=== PATIENT | female | born 1940 | race Caucasian/White ===

== ENCOUNTER 2017-03-25 15:12 | Emergency (ER) | payer MEDICARE, BC, OTHER ==
[2017-03-25 15:35] VITALS: BP 112/66
--- NOTE | 2017-03-25 15:48 | UC ---
Hip/Pelvis Pain - HPI Summary HPI Summary: pain in right hip no know injury - History Of Current Complaint Chief Complaint: UCLowerExtremity Stated Complaint: HIP PAIN Time Seen by Provider: 03/25/17 15:44 Hx Obtained From: Patient Hx Last Menstrual Period: N/A ?: No Mechanism Of Injury: none Onset/Duration: Sudden Onset, Lasting Days, Still Present Timing: Constant Severity Initially: Moderate Severity Currently: Moderate Pain Intensity: 6 Pain Scale Used: 0-10 Numeric Location: Discrete At: - right hip Character Of Pain: Aching, Throbbing, Stiffness Aggravating Factor(s): Movement, Weight Bearing Alleviating Factor(s): Rest Associated Signs And Symptoms: Positive: Negative - Allergies/Home Medications Allergies/Adverse Reactions: Allergies Allergy/AdvReac Type Severity Reaction Status Date / Time Latex Allergy Mild Rash Verified 03/25/17 15:35 Adhesive Tape Allergy Rash Verified 03/25/17 15:36 Alendronate [From Fosamax] AdvReac Intermediate gi reaction Verified 03/25/17 15 :35 Aspirin AdvReac Intermediate gi reaction Verified 03/25/17 15:35 Codeine AdvReac Intermediate gi Verified 03/25/17 15:35 reactioin PMH/Surg Hx/FS Hx/Imm Hx Previously Healthy: No Endocrine History Of: Denies: Diabetes, Thyroid Disease Cardiovascular History Of: Reports: Hypertension Denies: Cardiac Disorders, Pacemaker/ICD, Myocardial Infarction, Congestive Heart Failure, Atrial Fibrillation, Deep Vein Thrombosis, Bleeding Disorders Respiratory History Of: Reports: Asthma Denies: COPD, Bronchitis, Pneumonia, Pulmonary Embolism GI/ History Of: Denies: Gastroesophageal Reflux, Ulcer, Gastrointestinal Bleed, Gall Bladder Disease, Kidney Stones, Diverticulitis, Renal Disease, Urosepsis Neurological History Of: Reports: CVA, Migraine Denies: TIA, Dementia, Seizures Psychological History Of: Denies: Anxiety, Depression, Bipolar Disorder, Schizophrenia, Post Traumatic Stress Disorder Cancer History Of: Denies: Lung Cancer, Colorectal Cancer, Breast Cancer, Prostate Cancer, Cervical Cancer - Surgical History Surgical History: Yes Surgery Procedure, Year, and Place: Hysterectomy - 1975, Gastric Bypass 2004, L. foot surgery - took out part of bone 1984, Bladder reconstruction 2008, DEVIATED SEPTUM 1988. VEIN STRIPPING-2010. HAMMER TOE LEFT FOOT 2012 - Family History Known Family History: Negative: Cardiac Disease, Hypertension, Diabetes - Social History Occupation: Employed Part-time - [employer] Lives: Alone Alcohol Use: Occasionally Alcohol Amount: wine Substance Use Type: None Smoking Status (MU): Never Smoked Tobacco - Immunization History Most Recent Influenza Vaccination: 2013 Most Recent Tetanus Shot: unk Most Recent Pneumonia Vaccination: n/a Review of Systems Constitutional: Negative Skin: Negative Eyes: Negative ENT: Negative Respiratory: Negative Cardiovascular: Negative Gastrointestinal: Negative Genitourinary: Negative Motor: Negative Neurovascular: Negative Musculoskeletal: Arthralgia - right hip Neurological: Negative Psychological: Negative All Other Systems Reviewed And Are Negative: Yes Physical Exam Triage Information Reviewed: Yes Appearance: Well-Appearing, Well-Nourished, Pain Distress - mild Vital Signs: Initial Vital Signs Temp 97.8 F 03/25/17 15:31 Pulse 80 03/25/17 15:31 Resp 16 03/25/17 15:31 BP 112/66 03/25/17 15:31 Pulse Ox 97 03/25/17 15:31 Vital Signs Reviewed: Yes Eye Exam: Normal Eyes: Positive: Conjunctiva Clear ENT Exam: Normal ENT: Positive: Normal ENT inspection, Hearing grossly normal. Negative: Nasal congestion, Nasal drainage, Trismus, Muffled/hoarse voice Dental Exam: Normal Neck exam: Normal Neck: Positive: Supple, Nontender Respiratory Exam: Normal Respiratory: Positive: Chest non-tender, Lungs clear, Normal breath sounds, No respiratory distress, No accessory muscle use Cardiovascular Exam: Normal Cardiovascular: Positive: RRR, No Murmur, Pulses Normal, Brisk Capillary Refill Abdominal Exam: Normal Abdomen Description: Positive: Nontender, No Organomegaly, Soft Musculoskeletal Exam: Normal Musculoskeletal: Positive: Strength Intact, No Edema, ROM Limited @ - right hip pain Neurological Exam: Normal Neurological: Positive: Alert, Muscle Tone Normal Psychological Exam: Normal Skin Exam: Normal Diagnostics - Radiology No standard instances Xray Interpretation: Positive (See Comments) - degenerative changes and osteophyte formation Radiology Interpretation Completed By: Radiologist Hip Injury Course/Dx - Course Course Of Treatment: ultram, tylenol, walker, follow with ortho - Differential Dx/Diagnosis Differential Diagnosis/HQI/PQRI: Bursitis, Contusion, Fracture, Sprain, Strain Provider Diagnoses: Degeneration hip, arthritis Discharge - Discharge Plan Condition: Stable Disposition: HOME Prescriptions: traMADol TAB* [Ultram*] 25 - 50 mg PO Q6HR PRN #15 tab MDD 4 PRN Reason: pain Patient Education Materials: Osteoarthritis (ED), Hip Pain (ED) Referrals: Marci Liang MD [Primary Care Provider] - Eufemia Hernandez MD [Medical Doctor] - 4 Days
--- NOTE | 2017-03-25 17:15 | RAD ---
INDICATION: Lateral right hip pain. COMPARISON: None TECHNIQUE: 3 views of the right hip were obtained. FINDINGS: Degenerative changes of the bilateral hips seen on the AP pelvis include mild joint space narrowing and sclerotic change of the acetabular roof. Additional views of the right hip demonstrate mild osteophyte formation along the superior edge of the acetabulum. There is no fracture or dislocation visible. Surgical clips are incidentally noted overlying the bilateral upper anterior hips. IMPRESSION: Degenerative changes of the bilateral hips. If the patient's symptoms persist follow-up imaging is recommended.
== END 2017-03-25 17:31 | disposition home or self-care (01) ==
LOC: UCEAST 15:12
DX: M16.11 Unilateral primary osteoarthritis, right hip (principal)
CPT/HCPCS: 99212; G0463

== ENCOUNTER 2017-03-28 12:26 | Observation (INO) | payer MEDICARE, BC, OTHER ==
[2017-03-28] MEDS ORDERED: Ondansetron INJ* 2 MG/ML VIAL IV ONE (14:12)
[2017-03-28] MEDS ORDERED: fentaNYL* 50 MCG/ML 2 ML VIAL (100 MCG VIAL) IV SLOW PU ONE ×2 (14:12→15:57)
[2017-03-28] MEDS ORDERED: NS 0.9% 1000 ML* 1,000 ML IV ONE (14:12)
--- NOTE | 2017-03-28 14:50 | RAD ---
HISTORY: Hip pain, unable to externally rotate or flex right hip, pain rating down hip and right lower extremity COMPARISONS: None TECHNIQUE: Multiple contiguous axial CT scans were obtained of the lumbar spine and pelvis without intravenous contrast, with coronal and sagittal multiplanar reformations. FINDINGS: There is a transitional last lumbar type vertebral body which will be labeled S1 for the purposes of counting. SPINAL CANAL: Evaluation of the central canal is limited on CT technique; however, there is no obvious canalicular mass or epidural hemorrhage. ALIGNMENT: The alignment is normal. VERTEBRAL BODIES: There is diffuse osteopenia. There is partial lumbarization of the S1 vertebral body. There is no displaced fracture or dislocation. There is deformity of the sacrococcygeal junction suggestive of remote fracture. JOINTS: There is diffuse extensive facet osteoarthritic change. There is mild osteoarthritis of the hips bilaterally MUSCULATURE: Unremarkable INTERVERTEBRAL DISCS: There is diffuse loss of intervertebral disc height throughout the spine. AXIAL IMAGES: T11-T12: There is no osseous neural foraminal narrowing or central canal stenosis. T12-L1: There is no osseous neural foraminal narrowing or central canal stenosis. L1-L2: There is no osseous neural foraminal narrowing or central canal stenosis. L2-L3: There is a right paracentral disc protrusion measuring 0.5 cm in depth. There is no significant neural foraminal narrowing or central canal stenosis. L3-L4: There is mild disc bulge. There is no significant neural foraminal narrowing or central stenosis. L4-L5: There is a broad-based disc bulge. There is bilateral facet hypertrophy. There is mild bilateral neural foraminal area. There is moderate narrowing of the central canal. L5-S1: There is bilateral facet hypertrophy. There is marginal osteophyte formation at the neural foramina bilaterally. There is mild disc bulge. There is mild narrowing of central canal. There is moderate bilateral neural foraminal narrowing. SOFT TISSUES: There is extensive diverticulosis of the colon OTHER: There is mild osteoarthritis of the SI joints IMPRESSION: 1. OSTEOPENIA. 2. 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 3. THERE IS A RIGHT-SIDED DISC PROTRUSION AT L2-L3. 4. THERE IS MODERATE NARROWING OF THE CENTRAL CANAL AT L4-L5. THERE IS MILD NARROWING OF CENTRAL CANAL AT L5-S1. 5. THERE IS MULTILEVEL NEURAL FORAMINAL NARROWING DESCRIBED ABOVE. 6. THERE IS OSTEOARTHRITIS OF THE HIPS AND SI JOINTS
--- NOTE | 2017-03-28 15:05 | RAD ---
HISTORY: Right lower extremity pain COMPARISONS: None relevant TECHNIQUE: Multiple transverse and longitudinal ultrasound images were obtained of the right lower extremity from the level of the common femoral vein inferiorly through to the infrapopliteal veins using grayscale, color Doppler, and spectral Doppler imaging with and without compression and with augmentation. Comparison images were obtained of the contralateral common femoral vein. FINDINGS: VEINS: The venous system of the right lower extremity is compressible throughout its course, with normal flow on color Doppler imaging and normal response to augmentation on spectral Doppler imaging. SOFT TISSUES: Unremarkable. OTHER FINDINGS: None. IMPRESSION: NO RIGHT LOWER EXTREMITY DEEP VEIN THROMBOSIS
[2017-03-28 15:20] LABS: Hematocrit 39 % (35-47); Mean Corpuscular HGB Conc 34 g/dl (31-36); Mean Corpuscular Hemoglobin 32 pg (27-31); Mean Corpuscular Volume 95 fL (80-97); Mean Platelet Volume 9 um3 (7.4-10.4); Red Blood Count 4.04 10^6/ul (4.0-5.4); Red Cell Distribution Width 13 % (10.5-15); White Blood Count 7.7 10^3/ul (3.5-10.8)
[2017-03-28 15:36] LABS: Albumin 3.9 g/dL (3.2-5.2); BUN/Creatinine Ratio 20.6 (8-20); C Reactive Protein 76.5 mg/L (< 5.00); Calcium 9.5 mg/dL (8.6-10.3); EGFR African American 117.8 (>60); EGFR Non-African American 91.6 (>60); Globulin 3.2 g/dL (2-4); Potassium 3.5 mmol/L (3.5-5.0); Total Bilirubin 0.6 mg/dL (0.2-1.0); Total Protein 7.1 g/dL (6.4-8.9)
[2017-03-28 16:22] LABS: Erythrocyte Sed Rate 51 mm/Hr (0-40)
--- NOTE | 2017-03-28 17:13 | ED ---
Akosua Dickinson Rebecca, scribed for Margaret Hidalgo MD on 03/28/17 at 1357 . Back Pain - HPI Summary HPI Summary: Pt is a 77 y/o F who presents to ED c/o lumbar back pain. Pain began suddenly 3 days ago and has been constant since onset. Pain is in the R lumbar back with radiation to the R buttock and the entire RLE, including the R foot. Pain is currently severe, ranked 9/10 and characterized as aching. Sx aggravated by walking, alleviated by nothing, unchanged by Tylenol. She has never taken Percocet or Morphine before. Additionally c/o R calf pain. Denies fever. Denies any recent falls. Pt cannot walk well, with her daughter stating she is shuffling. Daughter states she recently got bit by her puppy on the RLE. She is not on blood thinners. Pt was evaluated by [facility] on Thursday where an XR was performed and she was administered Tramadol which led to hyperemesis. PSHx gastric bypass (2004). PCP is Dr. Liang and orthopedist is Dr. Diallo, who has an MRI scheduled for current sx. - History of Current Complaint Chief Complaint: EDHipPelvisInjury Stated Complaint: LOWER BACK AND RIGHT FOOT INJURY Time Seen by Provider: 03/28/17 13:22 Hx Obtained From: Patient Hx Last Menstrual Period: N/A Onset/Duration: Sudden Onset, Still Present Onset/Duration: Started Days Ago - 3 days ago, Still Present Timing: Constant Back Pain Location: Is Discrete @ - R lumbar back, Radiates To - R buttock and RLE Severity Initially: Severe Severity Currently: Severe Pain Intensity: 9 Pain Scale Used: 0-10 Numeric Character: Aching Aggravating Symptom(s): Walking Alleviating Symptom(s): Nothing Associated Signs And Symptoms: Positive: Negative. Negative: Fever - Allergies/Home Medications Allergies/Adverse Reactions: Allergies Allergy/AdvReac Type Severity Reaction Status Date / Time Latex Allergy Mild Rash Verified 03/28/17 12:33 Adhesive Tape Allergy Rash Verified 03/28/17 12:33 Alendronate [From Fosamax] AdvReac Intermediate gi reaction Verified 03/28/17 12 :33 Aspirin AdvReac Intermediate gi reaction Verified 03/28/17 12:33 Codeine AdvReac Intermediate gi Verified 03/28/17 12:33 reactioin PMH/Surg Hx/FS Hx/Imm Hx Endocrine/Hematology History: Denies: Hx Diabetes, Hx Sickle Cell Disease, Hx Thyroid Disease Cardiovascular History: Reports: Hx Hypertension Denies: Hx Congestive Heart Failure, Hx Deep Vein Thrombosis, Hx Myocardial Infarction, Hx Pacemaker/ICD, Other Cardiovascular Problems/Disorders Respiratory History: Reports: Hx Asthma Denies: Hx Chronic Obstructive Pulmonary Disease (COPD), Hx Lung Cancer, Hx Pneumonia, Hx Pulmonary Embolism, Other Respiratory Problems/Disorders GI History: Denies: Hx Gall Bladder Disease, Hx Gastrointestinal Bleed, Hx Ulcer, Hx Urosepsis History: Reports: Other Problems/Disorders - mesh for prolapsed bladder Denies: Hx Kidney Stones, Hx Renal Disease Musculoskeletal History: Reports: Hx Arthritis - HANDS, KNEES, Hx Osteoporosis Sensory History: Reports: Hx Contacts or Glasses - INSTRUCTS GIVEN Denies: Hx Hearing Aid Opthamlomology History: Reports: Hx Contacts or Glasses - INSTRUCTS GIVEN Neurological History: Reports: Hx Headaches - HISTORY OF- NO RECENTLY, Hx Migraine, Other Neuro Impairments/Disorders - 08/2014CEREBRAL AMYLOID ANGIOPATHY Denies: Hx Dementia, Hx Seizures, Hx Transient Ischemic Attacks (TIA) Psychiatric History: Denies: Hx Anxiety, Hx Depression, Hx Panic Disorder, Hx Schizophrenia, Hx Bipolar Disorder - Cancer History Cancer Type, 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 foot surgery - took out part of bone 1984, Bladder reconstruction 2008, DEVIATED SEPTUM 1988. VEIN STRIPPING-2010. HAMMER TOE LEFT FOOT 2012 Hx Anesthesia Reactions: Yes - SENSITIVE- STATES TENDENCY TO WANT TO SLEEP FOR A LONG PERIOD OF TIME Infectious Disease History: Yes Infectious Disease History: Reports: Hx Shingles - Denies: Hx Clostridium Difficile, Hx Hepatitis, Hx Human Immunodeficiency Virus (HIV), Hx of Known/Suspected MRSA, Hx Tuberculosis, Hx Known/Suspected VRE , Hx Known/Suspected VRSA, History Other Infectious Disease, Traveled Outside the [place] in Last 30 Days - Family History Known Family History: Negative: Cardiac Disease, Hypertension, Diabetes - Social History Alcohol Use: Occasionally Alcohol Amount: wine Substance Use Type: Reports: None Smoking Status (MU): Never Smoked Tobacco Review of Systems Negative: Fever Positive: Arthralgia - R lumbar back pain with radiation to the R buttock and entire RLE, Other - R calf pain All Other Systems Reviewed And Are Negative: Yes Physical Exam - Summary Physical Exam Summary: General: Well appearing, no pain distress Skin: Warm, Skin Color Reflects Adequate Perfusion, Dry Eyes: EOMI, JET ENT: Pharynx normal, TMs normal Neck: Supple, nontender Respiratory: CTA, breath sounds present, no rhonchi, no wheezes, no rales Cardiovascular: RRR, no murmur, no rub, no gallop Abdomen: Soft, nontender, Non-distended, no guarding, no rebound Bowel: Present Musculoskeletal: RONNIE, No edema. Tender in the entire RLE. tender over the R calf, thigh and the anterior surface of the upper RLE. Neuro: Sensory/motor intact, A&Ox3, CN intact 2-12 Psych: Affect/mood appropriate Triage Information Reviewed: Yes Vital Signs On Initial Exam: Initial Vitals Temp Pulse Resp BP Pulse Ox 97.6 F 80 18 111/68 98 03/28/17 12:29 03/28/17 12:29 03/28/17 12:29 03/28/17 12:29 03/28/17 12:29 Vital Signs Reviewed: Yes Diagnostics - Vital Signs Vital Signs Temp Pulse Resp BP Pulse Ox 03/28/17 12:29 97.6 F 80 18 111/68 98 - Laboratory Lab Results: Lab Results 03/28/17 03/28/17 Range/Units 15:11 15:11 WBC 7.7 (3.5-10.8) 10^3/ul RBC 4.04 (4.0-5.4) 10^6/ul Hgb 13.0 (12.0-16.0) g/dl Hct 39 (35-47) % MCV 95 (80-97) fL MCH 32 H (27-31) pg MCHC 34 (31-36) g/dl RDW 13 (10.5-15) % Plt Count 181 (150-450) 10^3/ul MPV 9 (7.4-10.4) um3 Neut % (Auto) 71.8 (38-83) % Lymph % (Auto) 18.2 L (25-47) % [place] % (Auto) 9.2 H (1-9) % Eos % (Auto) 0.5 (0-6) % Baso % (Auto) 0.3 (0-2) % Absolute Neuts (auto) 5.5 (1.5-7.7) 10^3/ul Absolute Lymphs (auto) 1.4 (1.0-4.8) 10^3/ul Absolute Monos (auto) 0.7 (0-0.8) 10^3/ul Absolute Eos (auto) 0 (0-0.6) 10^3/ul Absolute Basos (auto) 0 (0-0.2) 10^3/ul Absolute Nucleated RBC 0 10^3/ul Nucleated RBC % 0.1 ESR 51 H (0-40) mm/Hr Sodium 136 (133-145) mmol/L Potassium 3.5 (3.5-5.0) mmol/L Chloride 98 L (101-111) mmol/L Carbon Dioxide 28 (22-32) mmol/L Anion Gap 10 (2-11) mmol/L BUN 13 (6-24) mg/dL Creatinine 0.63 (0.51-0.95) mg/dL Est GFR ( Amer) 117.8 (>60) Est GFR (Non-Af Amer) 91.6 (>60) BUN/Creatinine Ratio 20.6 H (8-20) Glucose 104 H (70-100) mg/dL Calcium 9.5 (8.6-10.3) mg/dL Total Bilirubin 0.60 (0.2-1.0) mg/dL AST 17 (13-39) U/L ALT 11 (7-52) U/L Alkaline Phosphatase 65 (34-104) U/L C-Reactive Protein 76.50 H (< 5.00) mg/L Total Protein 7.1 (6.4-8.9) g/dL Albumin 3.9 (3.2-5.2) g/dL Globulin 3.2 (2-4) g/dL Albumin/Globulin Ratio 1.2 (1-3) Result Diagrams: 03/28/17 15:11 03/28/17 15:11 Lab Statement: Any lab studies that have been ordered have been reviewed, and results considered in the medical decision making process. - CT L-Spine CT CT Interpretation Completed By: Radiologist - 1. OSTEOPENIA. 2. 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 3. THERE IS A RIGHT-SIDED DISC PROTRUSION AT L2-L3. 4. THERE IS MODERATE NARROWING OF THE CENTRAL CANAL AT L4-L5. THERE IS MILD NARROWING OF CENTRAL CANAL AT L5-S1. 5. THERE IS MULTILEVEL NEURAL FORAMINAL NARROWING DESCRIBED ABOVE. 6. THERE IS OSTEOARTHRITIS OF THE HIPS AND SI JOINTS Pelvis CT CT Interpretation Completed By: Radiologist - 1. OSTEOPENIA. 2. 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 3. THERE IS A RIGHT-SIDED DISC PROTRUSION AT L2-L3. 4. THERE IS MODERATE NARROWING OF THE CENTRAL CANAL AT L4-L5. THERE IS MILD NARROWING OF CENTRAL CANAL AT L5-S1. 5. THERE IS MULTILEVEL NEURAL FORAMINAL NARROWING DESCRIBED ABOVE. 6. THERE IS OSTEOARTHRITIS OF THE HIPS AND SI JOINTS - Ultrasound No standard instances Ultrasound Interpretation Completed By: Radiologist - Venous Doppler Study: NO RIGHT LOWER EXTREMITY DEEP VEIN THROMBOSIS Re-Evaluation - Re-Evaluation First Eval Re-Evaluation Time: 15:51 Change: Improved Comment: Explained that labs look good. From CT, it appears as though there are two issues - spinal disease and arthritis. Pt requested another dose of pain medication. Back Pain Course/Dx - Course Course Of Treatment: Patient medications reviewed this visit. 77 yo female with pain down right leg and back pain, since wed she has seen an orthopedist through [facility] and the plan was to get an mri as there is suspicion for sciatica. On exam she has si joint tenderness and pain with hip flexion and hip abduction. Her CT's show osteopenia, si joint arthritis and central canal stenosis after 2 doses of narcotics pt attempted to ambulate with a walker and was determinted to be unsafe. Dr. Hayward was made aware that pt is unsafe to go home and that her pain is intractable and he accepted the pt for admission - Diagnoses Provider Diagnoses: Hip pain, Sciatica - Provider Notifications Discussed Care of Patient With: Dr. Hayward, hospitalist, who accepts pt for admission. Time Discussed With Above Provider: 17:02 Discharge - Discharge Plan Condition: Good Disposition: ADMITTED TO [facility] Referrals: Marci Liang MD [Primary Care Provider] - The documentation as recorded by the Akosua oliveir Rebecca accurately reflects the service I personally performed and the decisions made by me, Margaret Hidalgo MD.
[2017-03-28] MEDS ORDERED: Metoprolol Tartrate IV* 1 MG/ML 5 ML VIAL IV PRN (17:54)
[2017-03-28] MEDS ORDERED: Enoxaparin(*) 40 MG/0.4 ML SYR SUBCUT SCH (18:00)
[2017-03-28] MEDS ORDERED: HYDROcodone/ACETAMIN 5-325 MG* 1 TAB PO PRN (18:01)
[2017-03-28] MEDS ORDERED: fentaNYL* 50 MCG/ML 2 ML VIAL (100 MCG VIAL) IV SLOW PU PRN (18:01)
[2017-03-28] MEDS ORDERED: Cyclobenzaprine TAB* 10 MG PO PRN (18:04)
[2017-03-28] MEDS ORDERED: Albuterol HFA INHALER* 8 gm MDI INH PRN (18:14)
[2017-03-28] MEDS ORDERED: PROCHLORPERAZINE INJ 5 MG/ML 2 ML VIAL IV PRN (18:16)
[2017-03-28] MEDS ORDERED: Ondansetron INJ* 2 MG/ML VIAL IV PRN (18:16)
[2017-03-28] MEDS ORDERED: Acetaminophen TAB* 325 MG PO PRN (18:16)
[2017-03-28] MEDS: predniSONE TAB* 20 MG PO SCH (18:55)
[2017-03-28] MEDS: NS 0.9% 1000 ML* 1,000 ML IV SCH (18:58)
[2017-03-28] MEDS: Ketorolac INJ* 30 MG/ML 1 ML VIAL IV PUSH PRN (19:00)
[2017-03-28] MEDS ORDERED: Lidocaine PATCH 5%* 1 PATCH TRANSDERM SCH (19:00)
--- NOTE | 2017-03-28 19:04 | HP ---
HISTORY AND PHYSICAL: ADDENDUM: Ms. 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 The pain is so severe on the right side that she is now unable to walk. She had osman montes an orthopedic surgery nurse practitioner a couple of days ago who ordered an MRI that is not darlene nned to be done until 03/31/17. The patient came to the hospital for intractable pain. She is emily g to be placed on overnight observation. We will place her on oral steroids as well as narcotic tez n medications. Physical therapy will evaluate the patient in the morning. Incidentally, the patient also was noted to be in atrial fibrillation. Due to her history of intrac ranial hemorrhage and amyloid angiopathy, anticoagulation is contraindicated. Nevertheless, she is going to be placed on telemetry monitored bed. For further details of the patient's presentation and plan, please see history and physical dictated by Janice Marin NP, on 03/28/17 with which I agree. [id number]/[facility] #: [id number]
--- NOTE | 2017-03-28 20:02 | HP ---
MEDICINE HISTORY AND PHYSICAL: DATE OF ADMISSION: 03/28/17 ATTENDING PHYSICIAN: Astrid Kay MD* (dictated by Byron Poole NP). PRIMARY CARE PROVIDER: Dr. Liang. CHIEF COMPLAINT: Low back pain. HISTORY OF PRESENT ILLNESS: Ms. Soria is a 77-year-old female who presents today with concern for low back pain. This pain has been present for an extended period of time, but has recently worsened. The patient states that suddenly it became worse 3 days ago. It has been constant ever since. She reports the pain starting in the right lumbar spinal region with radiation to the right buttock, right hip, and entire right lower extremity. The pain is most painful in the right foot. The right hip and thigh is tender to touch. She describes the pain as severe, aching, radiating, constant. She has recently started shuffling and now is reporting that she is unable to put weight on it without significant pain. Her pain is aggravated by walking and is relieved by nothing except the fentanyl that she received here in the ER. She was taking Tylenol at home with no effect. She states that she was prescribed tramadol earlier this week, but that caused significant vomiting. The patient reports that she has had difficulty absorbing medications due to a Jay-en- Y surgery many years ago. Her daughter reports that in the past she has tried oxycodone with no effect. The patient states that she was seen by an orthopedic provider at [facility], Annabella Diallo, who felt that it was sciatica. He ordered an MRI for next week, but she has been unable to function at home and has come into the ER for further evaluation and treatment. The patient denies any recent illness, fevers, or chills. She denies any chest pain, palpitations, syncope, or shortness of breath. She denies any cold or flu symptoms or abdominal pain, nausea, vomiting, or diarrhea. She denies any dysuria or hematuria. She denies any focal weakness. She reports tingling and numbness in the right lower extremity. She denies any new changes to her vision or hearing, but does think that she recently had a left ear tube placed due to recurrent fluid and clogging. She was seen by Dr. Roger. A few weeks ago, she reported having a headache on the left side of her head almost every day, but this has now gone. She denies any other concerns or complaints other than the right lower back pain and right lower extremity pain that she currently endorses. During my examination, the patient was noted to have an irregular rhythm that was concerning for AFib. steel handler confirmed the patient was in atrial fibrillation with rates in the 110s to 130s. PAST MEDICAL HISTORY: 1. Osteoporosis. 2. Allergic rhinitis. 3. Hypertension. 4. Asthma. 5. Osteoarthritis. 6. History of migraines. 7. Suspect previously diagnosed atrial fibrillation as the patient does report that one of her doctors tried to start her on Xarelto, but she could not do this due to her history of cerebral amyloid angiopathy. 8. 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 9. History of uterine cancer, status post hysterectomy. 10. History of varicose veins. PAST SURGICAL HISTORY: 1. Jay-en-Y surgery in 2003. 2. History of deviated septum, status post repair. 3. Left foot bunionectomy. 4. Varicose vein and vein stripping. 5. Hernia repair and belt lipectomy. 6. Followup of belt lipectomy x3. 7. Cystocele repair. 8. Lump removal of the left cheek. 9. Foot surgery for hammertoe and bunion. 10. Interlaminar epidural steroid block, series of 3 in 2003. 11. Basal cell carcinoma, status post lesion removal in 2007. 12. Fracture of left wrist in 2012. 13. History of fractured sternum in 2013. HOME MEDICATIONS: The patient provided me with a list that seems inconsistent with the pharmacy list. Nursing asked to help with updating the patient's medication list by contacting the pharmacy and PCP when offices are opened. The tentative list is as follows: 1. Multivitamin 1 tab daily. 2. Calcium 630 mg plus vitamin D 1 tab daily. 3. Glucosamine 2000 mg b.i.d. 4. Iron supplement daily. 5. Bisoprolol/hydrochlorothiazide 5/6.25 one tab daily. 6. Acetaminophen 325 mg q.4 hours p.r.n. 7. Tramadol 25 to 50 mg q.6 hours p.r.n. The patient states that this causes hyperemesis. 8. Torsemide 10 mg daily. 9. Symbicort 2 puffs b.i.d. 10. ProAir as needed. 11. Refresh Tears eye drops daily. 12. Lisinopril 10 mg daily. 13. AREDS PreserVision vitamin daily. 14. Spironolactone 25 mg daily. 15. Ginseng supplement daily. 16. Loratadine 10 mg daily. 17. Fluticasone nasal spray 2 sprays to both nares daily. Again, this is a tentative list that needs to be updated as the patient is a poor historian. ALLERGIES: Include LATEX, ADHESIVE TAPE, ALENDRONATE, ASPIRIN, and CODEINE. Please note that ASPIRIN, CODEINE, FOSAMAX include GI reactions and TAPE and LATEX include rash reactions. FAMILY HISTORY: Per previous records, the patient's mother at the age of 80. The patient's father at the age of 75. She is unaware of the medical history. She reports a sister who had stomach cancer and another who from Alzheimer's. SOCIAL HISTORY: She denies any previous or current smoking. She drinks alcohol occasionally. She denies any illicit drug use. 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 She formerly worked at [employer]. She is . She lives at home by herself. She has 5 living children. Her daughters, Ly and Julieta, are her surrogate decision makers in the event of emergency. REVIEW OF SYSTEMS: A 14-point review of systems was completed. All pertinent positives and negatives are included in the HPI. Others not mentioned were negative. PHYSICAL EXAMINATION GENERAL: Ms. Soria is a well-developed, well-nourished elderly female who is lying in the bed in no acute distress. VITAL SIGNS: Temperature 98.5, heart rate 110, respiratory rate 22, blood pressure 157/94, and O2 saturation 97% on room air. HEENT: Head is atraumatic, normocephalic. Face is symmetrical. Pupils are equal, round, and reactive to light. Extraocular movements are intact. External ears and nose are normal. Oral mucosa appears moist. There is no oropharyngeal erythema. NECK: Supple. No lymphadenopathy appreciated. RESPIRATORY: Lungs are clear to auscultation anteriorly. The patient had pain with leaning forward, so I was unable to listen posteriorly. CARDIAC: Irregular rate and rhythm. No murmurs appreciated. The patient has trace lower extremity edema. Distal pulses are 2+ at the dorsalis pedis site. ABDOMEN: Soft, nontender, nondistended. Bowel sounds are present. MUSCULOSKELETAL: There is no cyanosis or clubbing present. The patient has active range of motion to all extremities, but does have guarding to the right lower extremity secondary to pain. She is able to dorsiflex and extend the right foot. SKIN: Warm and dry, appears grossly intact. The patient does have evidence of varicose veins to the lower extremities. NEUROLOGIC: Cranial nerves II through XII appeared to be grossly intact. Sensation is intact to sharp and dull as well as light touch to both lower extremities. PSYCH: She is alert and oriented x3. LABORATORY DATA AND DIAGNOSTIC STUDIES: CBC: WBC 7.7, hemoglobin 13.0, hematocrit 39, platelet count 181. Her ESR is 51. CMP: Sodium 136, potassium 3.5, chloride 98, carbon dioxide 28, BUN 13, creatinine 0.63, glucose 104, calcium 9.5. Total bilirubin 0.6, AST 17, ALT 11, alk phos 65. CRP 76.5. Venous Doppler study of the right lower extremity shows no right lower extremity deep vein thrombosis. CT of the lumbar spine shows: 1. Osteopenia. 2. Degenerative disk disease and osteoarthritis of the lumbar spine. 3. There is a right-sided disk protrusion at L2-L3. 4. There is moderate narrowing of the central canal at L4-L5. There is mild narrowing of the central canal at L5-S1. There is multilevel neuroforaminal narrowing as described above. There is osteoarthritis of the hips and SI joints. CT of the pelvis: Findings are consistent with the findings of the CT of the lumbar spine. Old medical records were reviewed. ASSESSMENT AND PLAN: Ms. Soria is a 77-year-old female who presents today with concern for intractable back pain and right lower extremity pain that prevents her from safely staying at home and ambulating as well as atrial fibrillation. We will admit her to the telemetry floor. Plan is as follows: 1. Intractable back pain: The patient has not been tried on many pain modalities recently, but appears to have sensitivity to many pain medications. We will try her on some prednisone to see if that may help with the inflammation. Additionally, we will continue the fentanyl and try hydrocodone which apparently she has not had. We will include antiemetics as this does cause discomfort for the patient. We will also try a Lidoderm patch and make available Flexeril for muscle spasms and continue to follow. The patient is ordered PT and OT. Ultimately, I think she will probably need an MRI and perhaps a neurosurgery consult, but we will begin with medical management at this time. She does have an elevated ESR and CRP, although the etiology of this is unclear as the patient has no other acute complaints other than this pain. I will check a UA as well as some blood cultures to make sure that we are not missing any acute infections and we will recheck the CRP tomorrow. We will attempt to obtain records from the patient's primary care doctor and orthopedic doctor in order to better understand what has been occurring in the outpatient setting. 2. Atrial fibrillation: I do not think this is new as the patient does describe that someone had once told her recently that she has an irregular heart beat and states that they also informed her that she has some swelling around her heart. She states that she was offered Xarelto, but her neurologist told her that she could not have this due to her history of cerebral amyloid angiopathy. I will obtain an echocardiogram here because I do feel that she may have some heart failure or cardiomyopathy; however, she is unaware of this history and her daughters do not seem to be aware of this either. Again, we will try to obtain records from her primary when available. It appears the patient has asymptomatic atrial fibrillation as she does not endorse any chest pain or shortness of breath in the outpatient setting. I think she is most likely rate controlled, but after my examination, I did note that her heart rate did stay sustained in the 120s for quite sometime before relaxing down into the 100s. We will, therefore, monitor on telemetry and I have p.r.n. metoprolol available in the event that she does have a sustained heart rate in the 120s or greater. The patient does have significant pain with movement, so this may actually be a recurrent issue, but we will continue to monitor closely on telemetry to see how the patient fares. I do also suspect from investigation into the patient's history that she does see a sex worker or escort , although she does not recall this when asked. 3. Hypertension: Continue home lisinopril, bisoprolol/hydrochlorothiazide, torsemide, and spironolactone. 4. History of asthma: Continue Symbicort and p.r.n. albuterol. 5. History of allergic rhinitis: Continue loratadine and fluticasone nasal spray. 6. History of Jay-en-Y gastric bypass: Continue home vitamin supplements. 7. DVT prophylaxis: The patient is ordered subcu Lovenox. 8. FEN: She is ordered a heart healthy diet. 9. Code status: The patient is a full code. TIME SPENT: Approximately 70 minutes were spent in admission of this patient which includes more than half the time spent [id number] with the patient and her family obtaining history and physical, performing physical examination, and reviewing the plan of care. The plan of care was also reviewed with my attending, Dr. Kay, who is in agreement. BYRON POOLE NP ADDENDUM TO HISTORY AND PHYSICAL: Ms. Soria is a 77-year-old female with a history of cerebral amyloid angiopathy with intracranial hemorrhage in the past who presented to the hospital complaining of worsening of her right-sided sciatica. The pain is so severe on the right side that she is now unable to walk. She had seen an orthopedic surgery nurse practitioner a couple of days ago who ordered an MRI that is not planned to be done until 03/31/17. The patient came to the hospital for intractable pain. She is going to be placed on overnight observation. We will place her on oral steroids as well as narcotic pain medications. Physical therapy will evaluate the patient in the morning. Incidentally, the patient also was noted to be in atrial fibrillation. Due to her history of intracranial hemorrhage and amyloid angiopathy, anticoagulation is contraindicated. Nevertheless, she is going to be placed on telemetry monitored bed. For further details of the patient's presentation and plan, please see history and physical dictated by Byron Poole NP, on 03/28/17 with which I agree. ASTRID KAY MD CC: Dr. Liang* [id number]/[facility] #: [id number]/CPS #: [id number] ANNMARIE
[2017-03-28] MEDS ORDERED: Lidocaine Patch REMOVE* 1 NOTE MISC SCH (21:00)
[2017-03-28] MEDS: Mometasone/Formoter 200/5 MDI INH SCH (21:05)
[2017-03-29] MEDS: Cholecalciferol TAB* 1000 UNITS PO SCH ×2 (00:13→07:58)
[2017-03-29] MEDS: HYDROcodone/ACETAMIN 5-325 MG* 1 TAB PO PRN ×2 (00:16→04:46)
[2017-03-29 04:45] LABS: Hematocrit 34 % (35-47); Hemoglobin 11.7 g/dl (12.0-16.0); Mean Corpuscular HGB Conc 34 g/dl (31-36); Mean Corpuscular Hemoglobin 33 pg (27-31); Mean Corpuscular Volume 95 fL (80-97); Mean Platelet Volume 9 um3 (7.4-10.4); Red Cell Distribution Width 13 % (10.5-15); White Blood Count 5.8 10^3/ul (3.5-10.8)
[2017-03-29] MEDS: Ketorolac INJ* 30 MG/ML 1 ML VIAL IV PUSH PRN (04:45)
[2017-03-29 05:08] LABS: BUN/Creatinine Ratio 26.2 (8-20); C Reactive Protein 69.31 mg/L (< 5.00); Calcium 8.3 mg/dL (8.6-10.3); EGFR African American 122.3 (>60); EGFR Non-African American 95.1 (>60)
[2017-03-29] MEDS: NS 0.9% 1000 ML* 1,000 ML IV SCH (05:59)
[2017-03-29 07:54] VITALS: BP 104/68
[2017-03-29] MEDS: predniSONE TAB* 20 MG PO SCH (07:58)
[2017-03-29] MEDS ORDERED: HYDROCHLOROTHIAZI PO SCH (09:00)
[2017-03-29] MEDS ORDERED: Preservision Areds(NF) CAP PO SCH (09:00)
[2017-03-29] MEDS ORDERED: Torsemide TAB* 20 MG PO SCH (09:00)
[2017-03-29] MEDS ORDERED: Calcium Citrate TAB* 200 MG PO SCH (09:00)
[2017-03-29] MEDS ORDERED: Fluticasone NASAL SPRAY 50MCG* 16 gm SPRAY BTL BOTH NARES SCH (09:00)
[2017-03-29] MEDS ORDERED: Cetirizine* 10 MG TAB PO SCH (09:00)
[2017-03-29] MEDS ORDERED: Spironolactone TAB* 25 MG PO SCH (09:00)
[2017-03-29] MEDS ORDERED: BISOPROLOL PO SCH (09:00)
[2017-03-29] MEDS ORDERED: Lisinopril TAB* 10 MG PO SCH (09:00)
[2017-03-29] MEDS ORDERED: Ferrous Sulfate TAB* 325 MG PO SCH (09:00)
[2017-03-29] MEDS: Mometasone/Formoter 200/5 MDI INH SCH (09:30)
--- NOTE | 2017-03-29 10:40 | ECHO ---
Patient: [facility] Rec#: [id number] : 1940 Date: 03/29/2017 Age: 77y Height: 162.56 cm / 64.0 in Weight: 75.3 kg / 166.0 lbs Sex: F BSA: 1.81 Room#: 432 Admit Date#: 03/28/2017 Type: Inpatient Referring: Janice Marin Reading: Italo Juares MD Camera Storage Clerk: Lisa Navarro NATHAN CC: Marci Liang MD Transthoracic Echocardiogram Indication: A-fib BP: 108/61 HR: 120 Rhythm: A-Fib Findings History: Cerebral Amiloyd Angiopathy,HTN,asthma,CVAx2,s/p gastric bypass. Technical Comments: The study quality is good. Completed at 0938. Left Ventricle: The left ventricular chamber size is normal. Global left ventricular wall motion and contractility are within normal limits. There is normal left ventricular systolic function. The estimated ejection fraction is 55-60%. The assessment of diastolic function is non-diagnostic. Left Atrium: The left atrium is moderately dilated. Right Ventricle: Moderator Band present. The right ventricular cavity size is normal. The right ventricular global systolic function is normal. Right Atrium: The right atrium is moderately dilated. Aortic Valve: The aortic valve is trileaflet. The aortic valve leaflets are moderately thickened. Systolic excursion of the aortic valve is normal. There is no evidence of aortic regurgitation. There is no evidence of aortic stenosis. Mitral Valve: There is mitral annular calcification. The mitral valve leaflets are mildly thickened. There is a trace of mitral regurgitation. Tricuspid Valve: The tricuspid valve leaflets are normal. There is mild to moderate tricuspid regurgitation. There is evidence of mild pulmonary hypertension. Pulmonic Valve: The pulmonic valve appears normal. There is a trace pulmonic regurgitation. There is no pulmonic stenosis. Pericardium: There is no significant pericardial effusion. A pericardial fat pad is visualized. Aorta: There is no dilatation of the ascending aorta. There is no dilatation of the aortic arch. There is no dilation of the aortic root. Pulmonary Artery: The main pulmonary artery is not well visualized. Venous: The venous system is not well visualized. Conclusions There is normal left ventricular systolic function. The estimated left ventricular ejection fraction (LVEF) is 55-60%. Global left ventricular wall motion and contractility are within normal limits. The left ventricular chamber size is normal. The left atrium is moderately dilated. The right atrium is moderately dilated. There is mild to moderate tricuspid regurgitation (TR). There is evidence of mild pulmonary hypertension. Since the prior echocardiogram completed 08/25/14, pertinent changes are prior mildly depressed LVEF reported and prior TR graded trace to mild. Measurements Name Value Normal Range RVIDd (AP) 2D 3.1 cm (0.9 - 2.6) RVDdMajor (2D) 3.5 cm (2.2 - 4.4) RAd ISD 4CH 5.6 cm (3.4 - 4.9) RA (A4C)W 4.7 cm (2.9 - 4.6) IVSd (2D) 0.8 cm (0.6 - 1) LVPWd (2D) 0.6 cm (0.6 - 1) LVIDd (2D) 4.1 cm (3.6 - 5.4) LVIDs (2D) 2.8 cm - LV FS (2D) 31 % (25 - 45) Aortic Annulus 1.8 cm (1.4 - 2.6) Ao root diameter (2D) 2.8 cm (2.1 - 3.5) Ascending Ao 3.2 cm (2.1 - 3.4) Aortic arch 2.6 cm (1.8 - 3.4) Descending Ao 0.5 cm - LA dimension (AP) 2D 4 cm (2.3 - 3.8) LAd ISD 4CH 7.5 cm (2.9 - 5.3) LA ISD 4CH W 4.9 cm (2.5 - 4.5) Name Value Normal Range LA ESV SP 4CH (A/L) 127 ml - LA ESV SP 2CH (A/L) 70 ml - LA ESV BP (A/L) 102 ml - LA ESV BP (A/L) index 56.42 ml/m2 - LA ESV SP 4CH (MOD) 122 ml - LA ESV SP 2CH (MOD) 68 ml - Name Value Normal Range MV E-wave Vmax 1 m/sec - MV deceleration time 149 msec - LV septal e' Vmax 0.1 m/sec - LV lateral e' Vmax 0.08 m/sec - LV E:e' septal ratio 10 ratio - LV E:e' lateral ratio 12.5 ratio - Name Value Normal Range AV Vmax 1.2 m/sec - AV VTI 27 cm - AV peak gradient 6.06 mmHg - AV mean gradient 2.96 mmHg - LVOT Vmax 0.8 m/sec - LVOT VTI 16.5 cm - LVOT peak gradient 2.5 mmHg - LVOT mean gradient 1.2 mmHg - Name Value Normal Range TR Vmax 2.7 m/sec - TR peak gradient 29 mmHg - RAP 8 mmHg - RVSP 37 mmHg - Name Value Normal Range PV Vmax 1 m/sec - PV peak gradient 3.83 mmHg -
[2017-03-29] MEDS ORDERED: Bisoprolol TAB* 5 MG PO SCH (12:00)
[2017-03-29] MEDS ORDERED: Hydrochlorothiazide TAB* 25 MG PO SCH (12:00)
--- NOTE | 2017-03-30 01:42 | DS ---
DISCHARGE SUMMARY: DATE OF ADMISSION: 03/28/17 DATE OF DISCHARGE: 03/29/17 PRIMARY CARE PROVIDER: Dr. Liang. CARDIOLOGY: Dr. Hernandez. DISCHARGE DIAGNOSIS: Intractable lower back pain due to right-sided lumbar radiculopathy in the patient with degenerative disk disease. SECONDARY DIAGNOSIS: 1. Please note that the patient was noted to be in rate controlled atrial fibrillation. Although, she was not herself aware of the diagnosis, she stated that she saw Dr. Hernandez in the past who was thinking of prescribing the patient Eliquis, but he was supposed to confirm it with her primary care doctor. Since then the patient had not been taking an anticoagulation, but she is still due to discuss her anticoagulation with Dr. Liang. 2. History of osteoporosis. 3. History of allergic rhinitis. 4. Hypertension. 5. Asthma. 6. Osteoarthritis. 7. History of migraines. 8. In 2013, the patient had intracerebral hemorrhage and was diagnosed with cerebral amyloid angiopathy. 9. History of uterine cancer status post hysterectomy. 10. History of varicose vein. 11. History of Jay-en-Y surgery in 2003. MEDICATIONS AT DISCHARGE: Include: 1. Multivitamin 1 tablet daily. 2. Calcium with vitamin D 1 tablet daily. 3. Glucosamine with 1 tablet daily. 4. Aricept on a daily basis. 5. Lisinopril 10 mg daily. 6. Bisoprolol with hydrochlorothiazide 1 tablet daily. 7. Albuterol inhaler on a p.r.n. basis. 8. Symbicort 2 puffs a day. 9. Torsemide 10 mg daily. 10. Spironolactone 25 mg daily. 11. Fluticasone one inhalation in both nostrils as needed. 12. In addition to that the patient is placed on [place] 5/325 mg 1 tablet every 4 hours p.r.n. The patient was dispensed a total of 30 tablets. I-STOP was checked. The last controlled substance prescription was Ultram and it was a 3- day worth prescription. 13. Prescription for prednisone taper 40 mg for 3 days, then 20 mg for 2 days, then 10 mg for 2 days, and then stop. 14. Prescription for Zofran ODT 4 mg every 6 hours p.r.n. pain. The patient is advised to use a walker if needed although she ambulated independently by the time of discharge. At discharge, the patient was recommended to follow up with her primary care provider in 4 to 7 days. She is recommended to keep her appointment for an outpatient MRI on 03/31/17. LABORATORY DATA AND STUDIES: Performed during the hospital stay include: On 03/29/17, sodium of 135, potassium 4.0, chloride 101, carbon dioxide 28, BUN 16, creatinine 0.61. C-reactive protein was 69. On 03/29/17, white blood cell count 5.8, hemoglobin 9.7, hematocrit of 34, and platelets of 160. ESR of 51. Lumbar spine CT, impression: "Osteopenia. Degenerative disk disease and osteoarthritis of the lumbar spine. There is a right-sided disk protrusion at L2- L3. There is moderate narrowing of the central canal at L4-L5. There is mild narrowing of the central canal at L5-L6. There is multilevel neuroforaminal narrowing as described above. There is osteoarthritis of the hips and joints." On Dopplers, venous Doppler of the right lower extremity shows no DVT on the right. HOSPITALIZATION COURSE: Gaby Soria is a 77-year-old female with history of above mentioned chronic conditions who presented complaining of severe right flank pain radiating to the right buttock and the back of the right leg worse when she tries to extend her right lower extremity. Pain has been going on for several days, but she also reports that she has had issues in the past with lower back pain. The patient was already scheduled for outpatient MRI on , but she presented to the hospital with intractable pain as mentioned above. She was placed on overnight observation, treated with p.o. prednisone as well oral narcotics with very good results. By the time of discharge she still felt her flank being "tight," but she has no problems with ambulation anymore. She is going to be discharged with recommendation to follow up with outpatient MRI as previously ordered. After the MRI is performed, the patient most likely will require evaluation by neurosurgeon. She was noted to have degenerative disk disease as mentioned above. At discharge, the patient is recommended to follow up with her primary care provider as well as use of a rolling walker as needed. PHYSICAL EXAM AT THE TIME OF DISCHARGE: Vitals Signs: Blood pressure of 104/68 , heart rate of 91 and irregular, respiratory rate 16, oxygen saturation 96% on room air, temperature 97.6. General: This is a very pleasant 77-year-old female who is in no acute distress. Awake and oriented x3. HEENT: Head is atraumatic, normocephalic. Eyes: Pupils equal and reactive to light and accommodation. Oropharynx clear. Mucosa moist. Neck: Supple. No JVD. No bruits bilaterally. Cardiovascular: Irregularly irregular rhythm; no murmurs. Respiratory: Clear to auscultation bilaterally. Abdomen: Soft, nontender. Bowel sounds present in all 4 quadrants. Extremities: There is trace bilateral pedal edema. Pulses +2 bilaterally. No clubbing or cyanosis. Neuro Evaluation : Speech clear. Cranial nerves II through XII grossly intact. Motor strength is 5/5 bilaterally. There is limitation of right leg raise due to pain noted in the right lumbar area when the patient is trying to raise her leg off bed. She is able to do it and hold it for several seconds though. Please note that the patient was noted to be in atrial fibrillation during her hospital stay. The patient is rather an unclear historian when it comes to description of her cardiac issues. She states that she saw Dr. Hernandez in the past who ordered her to be on blood thinner, but eventually she did not take it because of the history of intracerebral hemorrhage. I suspect the patient must have had been in atrial fibrillation in the past and was originally recommended anticoagulation, but that was stopped after her medical records were reviewed and she was noted to have cerebral amyloid angiopathy and intracerebral hemorrhage in 2013 that was at that point spontaneous. Nevertheless, I recommended for the patient to see her primary care provider in regards that as well as followup with Dr. Hernandez. The patient is aware that she is at risk of cardioembolic stroke when she has atrial fibrillation without anticoagulation, although her risk of repeat hemorrhagic stroke on anticoagulation is most likely higher than the risk of cardioembolic stroke while in atrial fibrillation. Please note this is a short summary of the patient's hospital stay. Please refer to further medical records for details. TIME SPENT: Approximately 40 minutes was spent on the patient's discharge. CC: Dr. Hernandez, Dr. Liang* [id number]/[facility] #: [id number] [facility]
== END 2017-03-29 11:34 | disposition home or self-care (01) ==
LOC: ED 12:26 → MED 17:20 → MEDTELE 18:02
PROVIDERS: ADMIT Internal Medicine; ATTEND Internal Medicine
DX: M51.16 Intervertebral disc disorders with radiculopathy, lumbar region (principal); I48.91 Unspecified atrial fibrillation; M48.06 Spinal stenosis, lumbar region; M16.0 Bilateral primary osteoarthritis of hip; M47.898 Other spondylosis, sacral and sacrococcygeal region; M81.0 Age-related osteoporosis without current pathological fracture; I10 Essential (primary) hypertension; J45.909 Unspecified asthma, uncomplicated; Z86.73 Personal history of transient ischemic attack (TIA), and cerebral infarction without residual deficits; E85.4 Organ-limited amyloidosis; I68.0 Cerebral amyloid angiopathy; Z85.42 Personal history of malignant neoplasm of other parts of uterus; Z98.84 Bariatric surgery status; M79.604 Pain in right leg
CPT/HCPCS: 36415; 72131; 72192; 80048; 80053; 85025; 85652; 86140; 87040; 93005; 93306; 94640; 96361; 96374; 96375; 96376; 99283; A9270-GY; G0378; G8978-GP-CJ; G8979-GP-CI; G8980-GP-CI; J1885; J2405; J3010; J7512

== ENCOUNTER 2020-01-27 21:22 | Emergency (ER) | payer MEDICARE, BC, OTHER ==
[2020-01-27] MEDS ORDERED: DOXYcycline CAP(*) 100 MG PO ONE (21:54)
--- NOTE | 2020-01-27 22:15 | UC ---
Skin Complaint HPI - HPI Summary HPI Summary: 79 female presents to the urgent care c/o tick bite in the posterior Rt thigh she noticed 30min ago. She reports she was dong some gardening this morning. Her daughter tried to remove it, but she left some remnants inside. Pt states mild redness around tick bit and pain at touch is 2/10. Pt denies Hx of tick bites in the past. Pt denies fever, cough, SOB, chest pain, abdominal pain, BANERJEE, dizziness, visual changes, N/V/d, Hx of travel or sick contacts recently. She is concern about lyme disease. - History of Current Complaint Chief Complaint: UCSkin Time Seen by Provider: 01/27/20 21:53 Stated Complaint: TICK Hx Obtained From: Patient Hx Last Menstrual Period: N/A Onset/Duration: Sudden Onset, Lasting Days - 12 hrs, Still Present Skin Exposure Onset/Duration: Hours Ago - 12 hrs Timing: Constant Onset Severity: Mild Current Severity: Mild Pain Intensity: 2 Pain Scale Used: 0-10 Numeric Location: Discrete - posterior RT thigh Character: Pain, Redness Aggravating Factor(s): Touch Alleviating Factor(s): Other - tick removal Associated Signs & Symptoms: Positive: Rash - tick bite on the posterior Rt thigh w/ still some tick parts inside, Tenderness. Negative: Fever, Drainage Related History: Possible Reaction to: Insect - tick bite - Allergy/Home Medications Allergies/Adverse Reactions: Allergies Allergy/AdvReac Type Severity Reaction Status Date / Time Adhesive Tape Allergy Rash Verified 01/27/20 21:53 alendronate sodium Allergy GI Upset Verified 01/27/20 21:53 aspirin Allergy GI Upset Verified 01/27/20 21:53 codeine Allergy GI Upset Verified 01/27/20 21:53 latex Allergy Rash Verified 01/27/20 21:53 Home Medications: Home Medications Cholecalciferol (Vitamin D3) [Vitamin D3] 2,000 units PO BID 12/14/12 [History Confirmed 01/27/20] Multivitamin [One Daily] 1 tab PO DAILY 09/06/15 [History Confirmed 01/27/20] Bisoprolol/Hydrochlorothiazide [Ziac 5-6.25 mg-] 1 tab PO DAILY 03/29/17 [ History Confirmed 01/27/20] Budesonide/Formote 160/4.5(NF) [Symbicort 160/4.5 (NF)] 2 puff INH BID 03/29/17 [History Confirmed 01/27/20] Fluticasone NASAL SPRAY 50MCG* [Flonase NASAL SPRAY 50MCG*] 2 spray BOTH NARES DAILY btl 03/29/17 [Rx Confirmed 01/27/20] Ketoconazole 2 % CREAM (NF) 1 applic INTRADERM DAILY 03/29/17 [History Confirmed 01/27/20] Lisinopril TAB* [Prinivil TAB 10 MG*] 10 mg PO DAILY tab 03/29/17 [Rx Confirmed 01/27/20] Spironolactone [Aldactone 25 MG-] 25 mg PO DAILY 03/29/17 [History Confirmed ] Torsemide TAB* [Demadex 20 MG*] 10 mg PO DAILY tab 03/29/17 [Rx Confirmed 01/26] Bacitracin OINTMENT* 1 applic TOPICAL BID #1 tube 01/27/20 [Rx] Ginseng 100 mg PO DAILY 01/27/20 [History Confirmed 01/27/20] Iron Ag,Ps/C/Fa6/B12/Zn/SA/Sto [Niferex Tablet] 1 tab PO DAILY 01/27/20 [ History Confirmed 01/27/20] Loratadine [Alavert] 10 mg PO DAILY 01/27/20 [History Confirmed 01/27/20] Torsemide 10 mg PO DAILY 01/27/20 [History Confirmed 01/27/20] PMH/Surg Hx/FS Hx/Imm Hx Previously Healthy: Yes Cardiovascular History: Cardiac Disease, Hypertension - Surgical History Surgical History: Yes Surgery Procedure, Year, and Place: Hysterectomy - 1975,. Gastric Bypass 2004 WITH VALVECTOMY,. L. foot surgery - took out part of bone 1984,. Bladder reconstruction 2008,. DEVIATED SEPTUM 1988,. VEIN STRIPPING-2010,. HAMMER TOE LEFT FOOT 2012,. ESTESIAN TUBES PLACED; - Family History Known Family History: Positive: Hypertension Negative: Cardiac Disease, Diabetes - Social History Occupation: Retired Lives: With Family Alcohol Use: Occasionally Alcohol Amount: wine Substance Use Type: None Smoking Status (MU): Never Smoked Tobacco - Immunization History Most Recent Influenza Vaccination: 2013 Most Recent Tetanus Shot: unk Most Recent Pneumonia Vaccination: has had see summary Review of Systems All Other Systems Reviewed And Are Negative: Yes Constitutional: Positive: Negative Skin: Positive: Rash - tick bite in theposterior RT thigh Eyes: Positive: Negative ENT: Positive: Negative Respiratory: Positive: Negative Cardiovascular: Positive: Negative Gastrointestinal: Positive: Negative Genitourinary: Positive: Negative Motor: Positive: Negative Neurovascular: Positive: Negative Musculoskeletal: Positive: Negative Neurological/Mental Status: Positive: Negative Psychological: Positive: Negative Is Patient Immunocompromised?: No Physical Exam - Summary Physical Exam Summary: Vital Signs Reviewed: Yes General: well developed, well nourished old female sitting in the examining table w/o any apparent distress. Eyes: Positive: Conjunctiva Clear - PERRLA, EOMI ENT: Positive: Normal ENT inspection, Hearing grossly normal, Pharynx normal, TMs normal Neck: Positive: Supple, Nontender, No Lymphadenopathy Respiratory: Positive: Chest nontender, Lungs clear, Normal breath sounds Cardiovascular: Positive: RRR, No Murmur, Pulses Normal Abdomen Description: Positive: Nontender, No Organomegaly, Soft. Negative: CVA Tenderness (R), CVA Tenderness (L) Bowel Sounds: Positive: Present Musculoskeletal: Positive: Strength Intact, ROM Intact, No Edema Neurological Exam: Normal Psychological Exam: Normal Skin: Positive: rashes - Posterior mid Rt thigh with tick bite with surrounding erythema, non tender to palpation. tick remnants still present, no swelling or drainage observed. Triage Information Reviewed: Yes Course/Dx - Course Course Of Treatment: 79 female presents to the urgent care c/o tick bite in the posterior Rt thigh she noticed 30min ago. She reports she was dong some gardening this morning. Her daughter tried to remove it, but she left some remnants inside. Pt states mild redness around tick bit and pain at touch is 2/10. Pt denies Hx of tick bites in the past. Pt denies fever, cough, SOB, chest pain, abdominal pain, BANERJEE, dizziness, visual changes, N/V/d, Hx of travel or sick contacts recently. She is concern about lyme disease. Hx obtained. Pt is hemodynamically stable, A&OX3 , Pt w/ BP: 180/93 but asymptomatic. Pt's BP retaken later 144/94. Tick remnants was removed from left posterior thigh w/ tweezers technique. After tick removal and the skin cleansing and Bacitracin ointment applied over tick bite. Antibiotic prophylaxis with Doxycycline given to the patient to take home to prevent lyme Disease. Pt advised to observe the area for the development or Erythema Migrans for up to 30 days following exposure. Pt Rx Bacitracin oint as directed below to prevent infection. Advised if she develops fever or erythema Migrans to return to the clinic or PCP for further treatment. Pt's BP is elevated today and advised to decrease salt in diet, monitor BP and f /u with PCP if BP continues to be elevated for further management. Pt understood and agreed with plan of care. - Differential Diagnoses - Skin Complaint Differential Diagnoses: Abscess, Cellulitis, MRSA, Tick Born Illness, Tinea - Diagnoses Provider Diagnosis: Tick bite of right thigh, Uncontrolled hypertension Discharge ED - Sign-Out/Discharge Documenting (check all that apply): Patient Departure - D/C home All imaging exams completed and their final reports reviewed: No Studies - Discharge Plan Condition: Stable Disposition: HOME Prescriptions: Bacitracin OINTMENT* 1 applic TOPICAL BID #1 tube Patient Education Materials: Tick Bite (ED) Referrals: Marci Liang MD [Primary Care Provider] - 3 Days Additional Instructions: 1- Please observe the area for the development or Erythema Migrans for upto 30 days following exposure. Components of the tick saliva can cause transient erythema that should not be confused with Erythema Migrans. If you develop the bull's eye rash, fever, joint pains please return to the urgent care or f/u with your PCP or Dr Chavez for further management. Apply Bacitracin oint around tick bite as directed 2-Antibiotic prophylaxis with Doxycycline was given to you today to prevent lyme Disease. Lyme serology can be drawn in 2 weeks with your PCP to r/o Lyme disease since there is probability of negative results at early exposure. 3-Your BP is elevated today. Please take your BP medications and decrease salt in your diet, monitor BP and if it continues to be elevated please f/u with your PCP for further management. If you develop chest pain, dizziness, visual disturbances, SOB, or severe BANERJEE please go immediately to the ER for further management - Billing Disposition and Condition Condition: STABLE Disposition: Home
[2020-01-27 22:26] VITALS: BP 144/94
== END 2020-01-27 22:19 | disposition home or self-care (01) ==
LOC: UCEAST 21:22
DX: S70.361A Insect bite (nonvenomous), right thigh, initial encounter (principal); W57.XXXA Bitten or stung by nonvenomous insect and other nonvenomous arthropods, initial encounter; Y93.H2 Activity, gardening and landscaping; Y92.007 Garden or yard of unspecified non-institutional (private) residence as the place of occurrence of the external cause; I10 Essential (primary) hypertension; Z79.899 Other long term (current) drug therapy; Z88.6 Allergy status to analgesic agent; Z91.040 Latex allergy status; Z91.018 Allergy to other foods; Z88.8 Allergy status to other drugs, medicaments and biological substances; Z91.048 Other nonmedicinal substance allergy status
CPT/HCPCS: 99212; A9270-GY; G0463